=== PATIENT | male | born 1965 | race Caucasian/White ===

== ENCOUNTER 2018-06-13 14:50 | Emergency (ER) | payer OTHER ==
[2018-06-13] MEDS ORDERED: CIPROFLOXACIN 500 MG TAB PO ONE (14:55)
--- NOTE | 2018-06-13 14:59 | ER Report ---
History and Physical Time Seen By MD: 14:55 Hx. of Stated Complaint: PATIENT IS THE ER PROVIDER THAT HAD A POTENTIAL EXPOSURE TO BACTERIAL MENINGITIS HPI/ROS CHIEF COMPLAINT: Exposure to bacterial meningitis HISTORY OF PRESENT ILLNESS: This is a 52-year-old male presents to the emergency department for exposure to bacterial meningitis. No rashes. No meningismus. No nausea vomiting. No fevers, no chest pain or shortness of breath. Unable To Obtain Past Medical: Unable to Obtain/Update Constitutional Vital Sign - Last 24 Hours 06/13/18 14:51 Temp 98.1 Physical Exam General appearance: Alert no distress. Respiratory: Chest is non tender, lungs are clear to auscultation. Cardiac: Regular rate and rhythm. DIFFERENTIAL DIAGNOSIS: After history and physical exam differential diagnosis was considered for exposure to bacterial meningitis. Medical Decision Making ED Course/Re-evaluation ED Course The patient was admitted to room. A history and physical were obtained. Differential diagnoses were considered. The patient was given the recommended prophylactic dose of ciprofloxacin. The patient had no other questions or concerns at this time and was discharged home. Decision to Disposition Date: Jun 13, 2018 Decision to Disposition Time: 14:57 Depart Departure Latest Vital Signs Vital Signs Date Time Temp Pulse Resp B/P (MAP) Pulse Ox O2 Delivery O2 Flow Rate FiO2 06/13/18 14:51 98.1 Impression: Primary Impression: Exposure to meningitis Condition: Improved Disposition: HOME OR SELF-CARE Additional Instructions: Follow-up with her primary care provider as needed. Return to the ER for any other concerns worsening symptoms. EVELIN BIANCHI [employer] Jun 13, 2018 14:59
== END 2018-06-13 15:11 | disposition home or self-care (01) ==
LOC: ER 15:06
DX: Z20.811 Contact with and (suspected) exposure to meningococcus (principal)
CPT/HCPCS: 99283